=== PATIENT | female | born 1950 | race Caucasian/White ===

== ENCOUNTER 2018-07-16 07:15 | Day surgery (SDC) | payer MEDICARE, MEDICAID, SELFPAY ==
[2018-07-16 07:37] VITALS: BP 147/58; PULSE 60; RESP 18; TEMP 36.9; O2SAT 98
[2018-07-16 07:45] VITALS: BP 147/58; PULSE 60; RESP 18; TEMP 36.9; O2SAT 98
[2018-07-16] MEDS: Lactated Ringers 1,000 ML 80 ML IV (07:55)
[2018-07-16] MEDS: Sulfameth/Trimeth DS TAB 1 TAB PO (08:00)
--- NOTE | 2018-07-16 08:02 | W.PM.HP.N ---
Date of service: 07/16/18 Time of Service: 08:02 Assessment and Plan (1) History of bladder cancer: Current visit: No Status: Acute For surveillance cystoscopy and possible TURBT. If no tumor is identified, we will switch her surveillance cystoscopy to yearly. 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 Her last occurrence was about 2 years ago. She comes in for surveillance cystoscopy. She has no gross hematuria. She has no change in her voiding symptoms. Review of Systems Review of Systems She has no fever or chills She has no vision change She has no dysphasia or thyroid dysfunction She has no cough or sputum production She has no chest pain she does have a history of coronary artery disease and hypertension She has occasional abdominal pain and constipation. She has had a negative abdominal ultrasound recently She has no bleeding disorders or anemia She has no seizures or strokes PFSH Family History Mother Essential hypertension Heart disease Myocardial infarction Father Heart disease Hyperlipidemia Myocardial infarction Sister Personal history of malignant neoplasm Heart disease Sister Gout Essential hypertension Personal history of malignant neoplasm Heart disease Sister Gout Heart disease Myocardial infarction Kidney function abnormal Brother Gout Essential hypertension Hyperlipidemia Grandfather TB (tuberculosis) Myocardial infarction Grandfather Heart disease Grandmother Heart disease Asthma Grandmother Heart disease Sister Gout Brother Gout Brother Diabetes Gout Essential hypertension Hyperlipidemia Son Diabetes Essential hypertension Depression Daughter No problems noted. Daughter Diabetes Depression Medical History Bladder cancer (Acute) Social History Smoking/Tobacco Use Status: Current every day Surgical History Abdominal hysterectomy (~08/2000) Blood Transfusion (~08/2000) Cervical Conization/LEEP Cystoscopy (04/24/17) HERNIA REPAIR Ligation of fallopian tube Stent placement VENTRAL HERNIA REPAIR Meds Home Medications Medication Instructions Recorded Confirmed Type aspirin 325 mg PO DAILY tab-cap 11/30/12 07/16/18 History multivitamin [Daily Multiple 1 ea PO DAILY 11/16/15 07/16/18 History Vitamin] acetaminophen [Tylenol Extra 1,000 mg PO PRN PRN 07/17/17 07/16/18 History Strength] albuterol sulfate [Proair Hfa] 1 - 2 puff INHALATION Q6H PRN #1 08/05/17 07/16/18 Rx inhaler losartan [Cozaar] 100 mg PO DAILY #90 tab 08/26/17 07/16/18 Rx Prevail Pads 1 pad TOPICAL 3-4 daily #100 pad 01/13/18 07/16/18 Clinic cetirizine [Zyrtec] 10 mg PO DAILY #90 tab-cap 01/13/18 07/16/18 Rx folic acid 1 mg PO DAILY #90 tab-cap 01/13/18 07/16/18 Rx hydrochlorothiazide 25 mg PO DAILY #90 tab 01/13/18 07/16/18 Rx incontinence pad, liner, disp #180 01/13/18 History [Mary Bladder Control Pads] metoprolol succinate 100 mg PO DAILY #90 tab-cap 01/13/18 07/16/18 Rx nitroglycerin [Nitrostat] 0.4 mg SUBLINGUAL ONCE PRN #25 tab 01/13/18 07/16/18 History nystatin 0 TOPICAL BID #60 gm 01/13/18 History polyethylene glycol 1000(bulk) 17 gm PO BID PRN #500 gm 01/13/18 07/16/18 History docusate sodium 100 mg capsule 100 mg PO TID #90 cap 06/09/18 07/16/18 Rx atorvastatin [Lipitor] 40 mg PO DAILY 07/13/18 07/16/18 History torsemide 20 mg PO DAILY 07/13/18 07/16/18 History benzonatate [Tessalon Perles] 100 mg PO TID PRN 07/16/18 07/16/18 History Allergies Allergy/AdvReac Type Severity Reaction Status Date / Time No Known Allergies Allergy Unverified 07/16/18 07:32 Exam Narrative Exam Narrative: She is a pleasant, obese woman in no current distress. She is cooperative with the exam. She does not appear septic or toxic Her chest wall motion is normal. She does not appear short of breath at rest. Her lungs are clear. Cardiac exam reveals a regular rate and rhythm. Her abdomen is obese but soft with no masses. The kidneys liver and spleen are not palpable. No amputations or deformities are identified. She is awake, alert and oriented. Results Last Vital Signs Temp 36.9 C 07/16/18 07:45 Pulse 60 07/16/18 07:45 Resp 18 07/16/18 07:45 BP 147/58 H 07/16/18 07:45 Pulse Ox 98 07/16/18 07:45
[2018-07-16] MEDS: Lidocaine 2% Jelly 11 ML SYR (08:53)
--- NOTE | 2018-07-16 09:04 | BLADDER_PTH ---
PATIENT: SKYLER NEWSOME LOC: [facility] U#:[id number] AGE/SX: 67/F ROOM: RE07/16/[address]: Alan Quinonez MD : 1950 BED: DIS: 07/16/2018 SPEC #: [id number] RECD: 07/16/18 13:02 STATUS: SONG REGabo #: [id number] EUFEMIA: 07/16/18 09:[address]: Alan Quinonez DEPT: Surgical Specimen RECD BY: Molly Mars Tissues: 1 - BLADDER BIOPSY Procedures: GROSS AND MICRO LEVEL 4 Comments: [id number]
--- NOTE | 2018-07-16 09:16 | W.PM.DSUDISC ---
Discharge Plan Disposition Patient Disposition: HOME Condition: Stable Discharge Details Reason For Visit: BLADDER CA Attending Provider: Alan Quinonez Home Meds and New Rx's Prescriptions: No Action aspirin 325 MG tablet 325 mg PO DAILY RF: 0 multivitamin [Daily Multiple] 1 EACH tablet 1 ea PO DAILY RF: 0 albuterol sulfate [ProAir HFA] 8.5 GM HFA aerosol inhaler 1 - 2 puff Inhalation Q6H PRN Qty: 1 RF: 12 losartan [Cozaar] 100 MG tablet 100 mg PO DAILY Qty: 90 RF: 4 cetirizine [Zyrtec] 10 MG tablet 10 mg PO DAILY Qty: 90 RF: 12 metoprolol succinate 100 MG tablet extended release 24 hr 100 mg PO DAILY Qty: 90 RF: 12 polyethylene glycol 1000(bulk) 500 GM powder 17 gm PO BID PRNQty: 500 RF: 12 nitroglycerin [Nitrostat] 0.4 MG tablet, sublingual 0.4 mg Sublingual ONCE PRNQty: 25 RF: 12 folic acid 1 MG tablet 1 mg PO DAILY Qty: 90 RF: 12 hydrochlorothiazide 25 MG tablet 25 mg PO DAILY Qty: 90 RF: 4 nystatin 60 GM powder Topical BID Qty: 60 RF: 12 incontinence pad, liner, disp [Mary Bladder Control Pads] 1 EACH pad Miscellaneous 5 daily Qty: 180 RF: 12 prevail pads 1 pad Topical 3-4 daily Qty: 100 RF: 12 docusate sodium [Colace] 100 mg capsule 100 mg PO TID Qty: 90 RF: 3 acetaminophen [Mapap Extra Strength] 500 MG tablet 1,000 mg PO PRN PRNRF: 0 torsemide 20 mg Tablet 20 mg PO DAILY RF: 0 atorvastatin [Lipitor] 80 MG tablet 40 mg PO DAILY RF: 0 benzonatate [Tessalon Perles] 100 mg Capsule 100 mg PO TID PRNRF: 0 Discharge Instructions Additional Instructions: No appt needed at this time Ask pt to call my office in 1 to 2 weeks to discuss pathology results The timing of her next cysto will depend on the pathology results Activity:: Activity as Tolerated Diet:: As Tolerated DS: Diagnosis Discharge Diagnosis (1) History of bladder cancer: Status: Acute
[2018-07-16] MEDS: Phenazopyridine 200 MG TAB PO (09:39)
[2018-07-16 09:55] VITALS: BP 133/55; PULSE 55; RESP 16; TEMP 36.3; O2SAT 97
--- NOTE | 2018-07-16 09:55 | W.PM.DSUDISC ---
Discharge Plan Disposition Patient Disposition: HOME Condition: Stable Discharge Details Reason For Visit: BLADDER CA Attending Provider: Alan Quinonez Home Meds and New Rx's Prescriptions: No Action aspirin 325 MG tablet 325 mg PO DAILY RF: 0 multivitamin [Daily Multiple] 1 EACH tablet 1 ea PO DAILY RF: 0 albuterol sulfate [ProAir HFA] 8.5 GM HFA aerosol inhaler 1 - 2 puff Inhalation Q6H PRN Qty: 1 RF: 12 losartan [Cozaar] 100 MG tablet 100 mg PO DAILY Qty: 90 RF: 4 cetirizine [Zyrtec] 10 MG tablet 10 mg PO DAILY Qty: 90 RF: 12 metoprolol succinate 100 MG tablet extended release 24 hr 100 mg PO DAILY Qty: 90 RF: 12 polyethylene glycol 1000(bulk) 500 GM powder 17 gm PO BID PRNQty: 500 RF: 12 nitroglycerin [Nitrostat] 0.4 MG tablet, sublingual 0.4 mg Sublingual ONCE PRNQty: 25 RF: 12 folic acid 1 MG tablet 1 mg PO DAILY Qty: 90 RF: 12 hydrochlorothiazide 25 MG tablet 25 mg PO DAILY Qty: 90 RF: 4 nystatin 60 GM powder Topical BID Qty: 60 RF: 12 incontinence pad, liner, disp [Mary Bladder Control Pads] 1 EACH pad Miscellaneous 5 daily Qty: 180 RF: 12 prevail pads 1 pad Topical 3-4 daily Qty: 100 RF: 12 docusate sodium [Colace] 100 mg capsule 100 mg PO TID Qty: 90 RF: 3 acetaminophen [Mapap Extra Strength] 500 MG tablet 1,000 mg PO PRN PRNRF: 0 torsemide 20 mg Tablet 20 mg PO DAILY RF: 0 atorvastatin [Lipitor] 80 MG tablet 40 mg PO DAILY RF: 0 benzonatate [Tessalon Perles] 100 mg Capsule 100 mg PO TID PRNRF: 0 Discharge Instructions Additional Instructions: No appt needed at this time Ask pt to call my office in 1 to 2 weeks to discuss pathology results The timing of her next cysto will depend on the pathology results Stand Alone Forms: [facility] Mccullough ([facility]) Activity:: Activity as Tolerated Diet:: As Tolerated Discharge Orders Discharge Orders: Discharge Order (Routine); Ordered 07/16/18 Ordered By: Alan Quinonez Discharge Data Discharge Date/Time-TO BE ENTERED AT DEPARTURE: 07/16/18 10:27 DS: Diagnosis Discharge Diagnosis (1) History of bladder cancer: Status: Acute
--- NOTE | 2018-07-16 10:30 | ROE_ITS ---
REPORT OF OPERATIVE PROCEDURE DATE OF PROCEDURE July 16, 2018 PREOPERATIVE DIAGNOSIS History of bladder cancer. POSTOPERATIVE DIAGNOSES History of bladder cancer with pathology pending. PROCEDURES Cystoscopy, bladder biopsies with fulguration. SURGEON Alan Quinonez M.D. ANESTHESIA MAC with local. COMPLICATIONS None. ESTIMATED BLOOD LOSS Minimal. FINDINGS Less than 2-cm papillary lesions at the bladder neck and posterior bladder wall. HISTORY This is a 67-year-old woman who has a history of urothelial cell carcinoma of the bladder. Her last occurrence was about two years ago. She presents for surveillance cystoscopy. OPERATIVE REPORT The patient was brought to the operating room on 07/16/2018. After being given Monitored Anesthesia Care, she was placed in the dorsal lithotomy position. Her genitalia was prepped and draped. A #22 Georgian rigid cystoscope was passed through the urethra into the bladder. The urethra and bladd er were inspected with both the 30 and the 70-degree lens. There was a less than 2-cm papillary lesion at the bladder neck at about the 10 o'clock position, thi s had a narrow stalk attaching it to the mucosa. In addition, there was a small papillary lesion post eriorly. A scar was seen from her previous tumor sites, but no additional papillary or nodular lesion s were seen. Due to the size of these lesions, we were able to remove them with the Cold Cup biopsy forceps, as th is was done, the tissue that was removed was sent to pathology for permanent section. The biopsy site s were then cauterized using bipolar Bugbee. The patient tolerated this procedure well. There were no complications. We will wait and see what the surgical pathology report indicates. If these lesions are not malignant , we can probably switch her surveillance cystoscopy to a yearly event. If urothelial cell carcinoma is again identified, we should probably stick with a three to six month schedule. The bladder is emptied and the cystoscope was withdrawn. She tolerated this procedure well with no co mplications. CC: Lucila Chapin M.D.
== END 2018-07-16 10:27 | disposition home or self-care (01) ==
PROVIDERS: Visit Provider Urology
PROC: 0TBB8ZZ Excision of Bladder, Via Natural or Artificial Opening Endoscopic (ICD-10-PCS; CPT 52204; principal; 2018-07-16 08:30)
DX: C67.5 Malignant neoplasm of bladder neck (principal)
CPT/HCPCS: 52204; 88305; NC; J2250; J3010

== ENCOUNTER 2019-01-14 06:07 | Day surgery (SDC) | payer OTHER, MEDICAID, SELFPAY ==
[2019-01-14 06:36] VITALS: BP 135/62; PULSE 54; RESP 18; TEMP 36.8; O2SAT 97
--- NOTE | 2019-01-14 06:59 | W.PM.HP.N ---
Date of service: 01/14/19 Time of Service: 07:00 Assessment and Plan (1) History of bladder cancer: Current visit: No Status: Chronic We will proceed with surveillance cystoscopy History of Present Illness Chief Complaint: Bladder cancer Narrative: This is a 68-year-old woman who has a history of urothelial cell carcinoma of the bladder. Her tumors have been low-grade and noninvasive. Her last occurrence was 07/2018. She presents for surveillance cystoscopy with possible transurethral resection of any visible tumor. She has no current gross hematuria. Review of Systems Review of Systems No fevers or chills Improved vision after cataract surgery last month No diabetes or thyroid No shortness of breath, cough or hemoptysis No chest pain or palpitations No vomiting, hepatitis, ulcers, jaundice, diarrhea. Chronic constipation controlled with colace and Miralax. Abdominal pain related to hernia. No seizures, strokes or peripheral neuropathy No bleeding disorders or anemia No gout PFSH Family History Mother Essential hypertension Heart disease Myocardial infarction Father Heart disease Hyperlipidemia Myocardial infarction Sister Personal history of malignant neoplasm Heart disease Sister Gout Essential hypertension Personal history of malignant neoplasm Heart disease Sister Gout Heart disease Myocardial infarction Kidney function abnormal Brother Gout Essential hypertension Hyperlipidemia Grandfather TB (tuberculosis) Myocardial infarction Grandfather Heart disease Grandmother Heart disease Asthma Grandmother Heart disease Sister Gout Brother Gout Brother Diabetes Gout Essential hypertension Hyperlipidemia Son Diabetes Essential hypertension Depression Daughter No problems noted. Daughter Diabetes Depression Social History Smoking/Tobacco Use Status: Current every day Tobacco Type: cigarettes Smoking cigarettes per day: 4 Tobacco: How many years used: 45 Alcohol Intake: never Drug use: Never Substance use type: does not use Do you feel safe at home: Yes Meds Home Medications Medication Instructions Recorded Confirmed Type aspirin 325 mg PO DAILY tab-cap 11/30/12 01/14/19 History multivitamin [Daily Multiple 1 ea PO DAILY 11/16/15 01/14/19 History Vitamin] acetaminophen [Tylenol Extra 1,000 mg PO PRN PRN 07/17/17 01/14/19 History Strength] albuterol sulfate [Proair Hfa] 1 - 2 puff INHALATION Q6H PRN #1 08/05/17 01/14/19 Rx inhaler losartan [Cozaar] 100 mg PO DAILY #90 tab 08/26/17 01/14/19 Rx Prevail Pads 1 pad TOPICAL 3-4 daily #100 pad 01/13/18 07/16/18 Clinic cetirizine [Zyrtec] 10 mg PO DAILY #90 tab-cap 01/13/18 01/14/19 Rx folic acid 1 mg PO DAILY #90 tab-cap 01/13/18 01/14/19 Rx hydrochlorothiazide 25 mg PO DAILY #90 tab 01/13/18 01/14/19 Rx incontinence pad, liner, disp #180 01/13/18 History [Mary Bladder Control Pads] metoprolol succinate 100 mg PO DAILY #90 tab-cap 01/13/18 01/14/19 Rx nitroglycerin [Nitrostat] 0.4 mg SUBLINGUAL ONCE PRN #25 tab 01/13/18 07/16/18 History nystatin 0 TOPICAL BID #60 gm 01/13/18 History polyethylene glycol 1000(bulk) 17 gm PO BID PRN #500 gm 01/13/18 01/14/19 History docusate sodium 100 mg capsule 100 mg PO TID #90 cap 06/09/18 01/14/19 Rx atorvastatin [Lipitor] 40 mg PO DAILY 07/13/18 01/14/19 History torsemide 10 mg PO DAILY 07/13/18 01/14/19 History benzonatate [Tessalon Perles] 100 mg PO TID PRN 07/16/18 07/16/18 History Allergies Allergy/AdvReac Type Severity Reaction Status Date / Time No Known Allergies Allergy Verified 01/14/19 06:29 Exam Narrative Exam Narrative: She is in no current distress. She is cooperative. Her vital signs are documented elsewhere in the chart. Neck is thick but supple with no mass. Her chest wall motion is normal she is not short of breath at rest. On auscultation, her lungs are clear. Her abdomen is soft with no peritoneal signs. There is tenderness along the site od an abdominal hernia. Her cardiac exam reveals a regular rate and rhythm She is awake, alert and oriented Results Last Vital Signs Temp 36.8 C 01/14/19 06:36 Pulse 54 L 01/14/19 06:36 Resp 18 01/14/19 06:36 BP 135/62 01/14/19 06:36 Pulse Ox 97 01/14/19 06:36
[2019-01-14] MEDS: Lactated Ringers 1,000 ML 80 ML IV (07:12)
[2019-01-14] MEDS: ceFAZolin 2 GM/50 ML BAG IVPB (07:41)
[2019-01-14] MEDS: Lidocaine 2% Jelly 6 ML SYR (07:57)
--- NOTE | 2019-01-14 08:06 | BLADDER_PTH ---
PATIENT: SKYLER NEWSOME LOC: [facility] U#:[id number] AGE/SX: 68/F ROOM: RE01/14/[address]: Alan Quinonez MD : 1950 BED: DIS: 01/14/2019 SPEC #: [id number] RECD: 01/14/19 12:55 STATUS: SONG REQ #: [id number] EUFEMIA: 01/14/19 08:[address]: Alan Quinonez DEPT: Surgical Specimen RECD BY: Molly Mars ENTERED: 01/14/19 12:57 SP TYPE: Bladder OTHR DR: Jennie Thomas Tissues: 1 - BLADDER BIOPSY Procedures: GROSS AND MICRO LEVEL 4 Comments: [id number]
--- NOTE | 2019-01-14 08:31 | W.PM.DSUDISC ---
Discharge Plan Disposition Patient Disposition: HOME Condition: Stable Discharge Details Reason For Visit: surgery Attending Provider: Alan Quinonez Primary Care Provider: Jennie Thomas Home Meds and New Rx's Prescriptions: No Action aspirin 325 MG tablet 325 mg PO DAILY RF: 0 multivitamin [Daily Multiple] 1 EACH tablet 1 ea PO DAILY RF: 0 albuterol sulfate [ProAir HFA] 8.5 GM HFA aerosol inhaler 1 - 2 puff Inhalation Q6H PRN Qty: 1 RF: 12 losartan [Cozaar] 100 MG tablet 100 mg PO DAILY Qty: 90 RF: 4 cetirizine [Zyrtec] 10 MG tablet 10 mg PO DAILY Qty: 90 RF: 12 metoprolol succinate 100 MG tablet extended release 24 hr 100 mg PO DAILY Qty: 90 RF: 12 polyethylene glycol 1000(bulk) 500 GM powder 17 gm PO BID PRNQty: 500 RF: 12 nitroglycerin [Nitrostat] 0.4 MG tablet, sublingual 0.4 mg Sublingual ONCE PRNQty: 25 RF: 12 folic acid 1 MG tablet 1 mg PO DAILY Qty: 90 RF: 12 hydrochlorothiazide 25 MG tablet 25 mg PO DAILY Qty: 90 RF: 4 nystatin 60 GM powder Topical BID Qty: 60 RF: 12 incontinence pad, liner, disp [Mary Bladder Control Pads] 1 EACH pad Miscellaneous 5 daily Qty: 180 RF: 12 prevail pads 1 pad Topical 3-4 daily Qty: 100 RF: 12 docusate sodium [Colace] 100 mg capsule 100 mg PO TID Qty: 90 RF: 3 acetaminophen [Mapap Extra Strength] 500 MG tablet 1,000 mg PO PRN PRNRF: 0 torsemide 20 mg Tablet 10 mg PO DAILY RF: 0 atorvastatin [Lipitor] 80 MG tablet 40 mg PO DAILY RF: 0 benzonatate [Tessalon Perles] 100 mg Capsule 100 mg PO TID PRNRF: 0 Discharge Instructions Additional Instructions: No Mitomycin given today My office will call with pathology report when available (expect 1 to 2 weeks) Expected F/U cystoscopy 6 months (may be sooner if pathology shows anything unexpected) Activity:: Activity as Tolerated Diet:: As Tolerated Discharge Orders Discharge Orders: Discharge Order (Routine); Ordered 01/14/19 Ordered By: Alan Quinonez DS: Diagnosis Discharge Diagnosis (1) History of bladder cancer: Status: Chronic
[2019-01-14] MEDS: Phenazopyridine 200 MG TAB PO (08:41)
[2019-01-14 08:44] VITALS: BP 113/61; PULSE 55; RESP 18; TEMP 36.7; O2SAT 97
--- NOTE | 2019-01-14 10:52 | ROE_ITS ---
REPORT OF OPERATIVE PROCEDURE DATE OF PROCEDURE January 14, 2019 PREOPERATIVE DIAGNOSIS Bladder cancer. POSTOPERATIVE DIAGNOSES Bladder cancer with recurrence. PROCEDURE Cystoscopy, transurethral resection of small bladder tumors. SURGEON Alan Quinonez M.D. ANESTHESIA MAC with local. COMPLICATIONS None. ESTIMATED BLOOD LOSS Minimal. FINDINGS Less than 2-cm papillary lesions at the bladder neck. HISTORY This is a 68-year-old woman who has a history of low-grade noninvasive urothelial cell carcinoma of t he bladder. She presents for surveillance cystoscopy. Her last occurrence was about six months ago. The patient was brought to the Operating Room on 01/14/2019. After being given Monitored Anesthesia C are, she was placed in the dorsal lithotomy position. Her genitalia was prepped and draped. 2% Xylocaine jelly was instilled into the urethra to act as a local anesthetic. A #24-[place] resectos cope sheath was passed through the urethra into the bladder. The bladder was inspected using a 30-de gree lens and the visual obturator. Both ureteral orifices appeared normal. No blood was seen coming from either side. Multiple small scars were seen on the posterior bladder wall from her previous resections. Two, less than 2-cm papillary lacerations were seen at the bladder neck. These were at approximately the 2 and 4 o'clock positions. Each of these lesions had a very small stalk for attachment to the bladder mucos a. Each was resected, and the resected tissue was evacuated and sent to Pathology for permanent secti on. The base of the resection site was then cauterized using the coagulation current. We utilized bipolar cautery for this procedure. We did not place mitomycin C into the bladder as the medication was not available to us at this point in time. The patient tolerated the procedure well with no complications. CC: Suha Thomas M.D.
== END 2019-01-14 09:09 | disposition home or self-care (01) ==
PROVIDERS: PCP Family Medicine; Visit Provider Urology
PROC: 0TBB8ZZ Excision of Bladder, Via Natural or Artificial Opening Endoscopic (ICD-10-PCS; CPT 52234; principal; 2019-01-14 07:30)
DX: C67.5 Malignant neoplasm of bladder neck (principal); Z08 Encounter for follow-up examination after completed treatment for malignant neoplasm; K21.9 Gastro-esophageal reflux disease without esophagitis
CPT/HCPCS: 52234; 88305; NC; J0690; J2250

== ENCOUNTER 2019-08-05 07:29 | Day surgery (SDC) | payer OTHER, MEDICAID, SELFPAY ==
[2019-08-05] VITALS (7 sets, daily range): BP systolic 105–162; BP diastolic 42–74; PULSE 60–65; RESP 17–26; TEMP 35.9–36.4; O2SAT 92–98
--- NOTE | 2019-08-05 08:26 | HPE_ITS ---
Date of service: 08/05/19 Time of Service: 08:26 Assessment and Plan Assessment and plan (1) History of bladder cancer: Status: Chronic Assessment and plan: She presents for cystoscopy with possible tr ansurethral resection of bladder tumor (if a tumor is identified). If the tumor is resected or cauterized, we will consider instilling mitomycin-C into the bladder immediately postop. 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 Her last occurrence was 6 months ago. She presents now for cystoscopy with possible transurethral resection of any visible bladder tumor. She has not seen any gross hematuria since her last cystoscopy. Her last tumor occurrence was in January 2019. Review of Systems Constitutional Constitutional: Denies chills and Denies fever(s) Eyes Eyes: Reports dry eyes Comments: Uses eyedrops 4 times a day ENT Ears, Nose, Mouth, and Throat: Denies sinus pain and Denies sore throat Cardiovascular Cardiovascular: Denies chest pain and Denies syncope Respiratory Respiratory: Denies hemoptysis and Denies excessive phlegm production Gastrointestinal Gastrointestinal: Denies nausea and Denies vomiting Musculoskeletal Musculoskeletal: Reports arthralgias Neurologic Neurologic: Denies syncope and Denies seizure-like activity Hematologic/Lymphatic Hematologic/Lymphatic: Denies easy bleeding and Denies easy bruising [facility] Medical History (Updated 08/05/19 @ 07:58 by Yamileth Casillas RN) Bladder cancer (Acute) Constipation (Acute) Edema extremities (Acute) GERD (gastroesophageal reflux disease) (Chronic) Pt states she doesn't have a lot of heartburn. History of heart attack (Acute) 1999 Hx of syncope (Acute) 08/2018 Leg edema (Acute) Surgical History Abdominal hysterectomy (~08/2000) BSO Blood Transfusion (~08/2000) Cervical Conization/LEEP Cystoscopy (04/24/17) DR. JJ HERNIA REPAIR 2000,2001,2004 History of cataract surgery (Chronic) Bilateral Ligation of fallopian tube Stent placement Cardiac Catherterization 1-2 stents per Pt VENTRAL HERNIA REPAIR X 3 Family History Mother Essential hypertension Heart disease Myocardial infarction Father Heart disease Hyperlipidemia Myocardial infarction Sister Personal history of malignant neoplasm CERVICAL Heart disease Sister Gout Essential hypertension Personal history of malignant neoplasm BREAST Heart disease Sister Gout Heart disease Myocardial infarction Kidney function abnormal Brother Gout Essential hypertension Hyperlipidemia Grandfather TB (tuberculosis) Myocardial infarction Grandfather Heart disease Grandmother Heart disease Asthma Grandmother , OLD AGE at age 94. Heart disease Sister Gout Brother Gout Brother Diabetes Gout Essential hypertension Hyperlipidemia Son Diabetes Essential hypertension Depression Daughter No problems noted. Daughter Diabetes Depression Social History Smoking/Tobacco Use Status: Current every day Tobacco Type: cigarettes Tobacco: How many years used: 45 Alcohol Intake: never Drug use: Never Substance use type: does not use Do you feel safe at home: Yes Meds Home Medications and Allergies Home Medications Medication Instructions Recorded Confirmed Type aspirin 325 mg PO DAILY tab-cap 11/30/12 08/05/19 History multivitamin [Daily Multiple 1 ea PO DAILY 11/16/15 08/05/19 History Vitamin] acetaminophen [Tylenol Extra 1,000 mg PO PRN PRN 07/17/17 08/05/19 History Strength] albuterol sulfate [Proair Hfa] 1 - 2 puff INHALATION Q6H PRN #1 08/05/17 08/05/19 Rx inhaler losartan [Cozaar] 100 mg PO DAILY #90 tab 08/26/17 08/05/19 Rx Prevail Pads 1 pad TOPICAL 3-4 daily #100 pad 01/13/18 07/16/18 Clinic cetirizine [Zyrtec] 10 mg PO DAILY #90 tab-cap 01/13/18 08/05/19 Rx hydrochlorothiazide 25 mg PO DAILY #90 tab 01/13/18 08/05/19 Rx incontinence pad, liner, disp #180 01/13/18 History [Mary Bladder Control Pads] metoprolol succinate 100 mg PO DAILY #90 tab-cap 01/13/18 08/05/19 Rx nitroglycerin [Nitrostat] 0.4 mg SUBLINGUAL ONCE PRN #25 tab 01/13/18 08/05/19 History nystatin 0 TOPICAL BID #60 gm 01/13/18 History polyethylene glycol 1000(bulk) 17 gm PO BID PRN #500 gm 01/13/18 08/05/19 History docusate sodium 100 mg capsule 100 mg PO TID #90 cap 06/09/18 08/05/19 Rx atorvastatin [Lipitor] 40 mg PO DAILY 07/13/18 08/05/19 History torsemide 10 mg PO DAILY 07/13/18 08/05/19 History benzonatate [Tessalon Perles] 100 mg PO TID PRN 07/16/18 08/05/19 History peg 400-propylene glycol [Systane 2 drp OPHTHALMIC (EYE) BID-QID PRN 08/05/19 08/05/19 History Ultra] Allergies Allergy/AdvReac Type Severity Reaction Status Date / Time No Known Allergies Allergy Verified 08/05/19 07:57 Exam Const General: cooperative and no acute distress Nutritional Appearance: overweight Orientation: alert, awake and oriented x3 Neck Neck: supple Chest Chest: normal inspection of the chest Resp Auscultation: clear to auscultation bilaterally Cardio Rate: regular rate Rhythm: regular rhythm GI Palpation: soft and no masses Neuro General: alert, awake and oriented x3 Results Last Vital Signs Temp 36.4 C L 08/05/19 07:47 Pulse 65 08/05/19 07:47 Resp 18 08/05/19 07:47 BP 162/74 H 08/05/19 07:47 Pulse Ox 96 08/05/19 07:47
[2019-08-05] MEDS: Lactated Ringers 1,000 ML 80 ML IV (08:27)
[2019-08-05] MEDS: ceFAZolin 2 GM/50 ML BAG IVPB (09:10)
[2019-08-05] MEDS: Lidocaine 2% Jelly 6 ML SYR (09:33)
--- NOTE | 2019-08-05 09:43 | W.PM.DSUDISC ---
Discharge Plan Disposition Patient Disposition: HOME Condition: Stable Discharge Details Attending Provider: Alan Quinonez Primary Care Provider: Jennie Thomas Home Meds and New Rx's Prescriptions: No Action aspirin 325 MG tablet 325 mg PO DAILY RF: 0 multivitamin [Daily Multiple] 1 EACH tablet 1 ea PO DAILY RF: 0 albuterol sulfate [ProAir HFA] 8.5 GM HFA aerosol inhaler 1 - 2 puff Inhalation Q6H PRN Qty: 1 RF: 12 losartan [Cozaar] 100 MG tablet 100 mg PO DAILY Qty: 90 RF: 4 cetirizine [Zyrtec] 10 MG tablet 10 mg PO DAILY Qty: 90 RF: 12 metoprolol succinate 100 MG tablet extended release 24 hr 100 mg PO DAILY Qty: 90 RF: 12 polyethylene glycol 1000(bulk) 500 GM powder 17 gm PO BID PRNQty: 500 RF: 12 nitroglycerin [Nitrostat] 0.4 MG tablet, sublingual 0.4 mg Sublingual ONCE PRNQty: 25 RF: 12 hydrochlorothiazide 25 MG tablet 25 mg PO DAILY Qty: 90 RF: 4 nystatin 60 GM powder 0 Topical BID Qty: 60 RF: 12 (DME) incontinence pad, liner, disp [Mary Bladder Control Pads] 1 EACH pad Miscellaneous 5 daily Qty: 180 RF: 12 prevail pads 1 pad Topical 3-4 daily Qty: 100 RF: 12 docusate sodium [Colace] 100 mg capsule 100 mg PO TID Qty: 90 RF: 3 acetaminophen [Mapap Extra Strength] 500 MG tablet 1,000 mg PO PRN PRNRF: 0 torsemide 20 mg Tablet 10 mg PO DAILY RF: 0 atorvastatin [Lipitor] 80 MG tablet 40 mg PO DAILY RF: 0 benzonatate [Tessalon Perles] 100 mg Capsule 100 mg PO TID PRNRF: 0 Systane Ultra 0.4-0.3 % Drops 2 drp OPHTHALMIC (EYE) BID-QID PRNRF: 0 Discharge Instructions Additional Instructions: Followup cysto in 1 year Activity:: Activity as Tolerated Shower/Bathe:: 24 hours Diet:: As Tolerated Discharge Orders Discharge Orders: Discharge Order (Routine); Ordered 08/05/19 Ordered By: Alan Quinonez DS: Diagnosis Discharge Diagnosis (1) History of bladder cancer: Status: Chronic
--- NOTE | 2019-08-05 13:32 | ROE_ITS ---
August 05, 2019 PREOPERATIVE DIAGNOSIS: Bladder cancer. POSTOPERATIVE DIAGNOSIS: Same. PROCEDURE: Cystoscopy, fulguration of bladder lesions. SURGEON: Alan Quinonez M.D. ANESTHESIA: General. COMPLICATIONS: None. ESTIMATED BLOOD LOSS: Minimal. HISTORY: This is a 68-year-old woman who has a history of low-grade noninvasive urothelial cell canc er of the bladder. Her last occurrence was 6 months ago. She presents for cystoscopy with possible transurethral resection of bladder tumor. If we do find tumor that needs to be resected, we will be prepared to instill Mytomycin-C C into the bladder. OPERATIVE REPORT: The patient was brought to the operating room on 08/05/19. After successful induc tion of general anesthesia, she is placed in the dorsal lithotomy position. Her genitalia was preppe d and draped. 2% Xylocaine jelly was instilled into the urethra to act as a local anesthetic. A #2 4 Slovak resectoscope sheath was passed through the urethra into the bladder. The bladder was inspec lissa using a 30 degree lens and the visual obturator. Both ureteral orifices appeared normal. Multiple scars were seen in the bladder from previous resect ions. Previously, her tumor was identified just within the bladder neck. No tumor was seen in this area on today's examination. Posteriorly, there were a few areas of hyperemic mucosa. It was unclear to me whether these represen lissa irritation from the scope or if they could be recurrent, low-grade tumors. We went ahead and cau terized these areas using a resectoscope loop. No blood was seen coming from either ureteral orifice. No additional abnormalities were found. The bladder was emptied and a cystoscope was withdrawn. Based on today's examination, we should be able to arrange for cystoscopy in 1 year. cc: Jennie Thomas M.D.
== END 2019-08-05 11:20 | disposition home or self-care (01) ==
PROVIDERS: PCP Family Medicine; Visit Provider Urology
PROC: 0TBB8ZZ Excision of Bladder, Via Natural or Artificial Opening Endoscopic (ICD-10-PCS; CPT 52224; principal; 2019-08-05 09:00)
DX: Z85.51 Personal history of malignant neoplasm of bladder (principal); Z08 Encounter for follow-up examination after completed treatment for malignant neoplasm; K21.9 Gastro-esophageal reflux disease without esophagitis
CPT/HCPCS: 52224; NC; J0690; J2250